=== PATIENT | female | born 1930 | race Caucasian/White ===

== ENCOUNTER 2017-01-02 16:02 | Inpatient (IN) | payer OTHER ==
[~2017-01-02] VITALS: Ht 152.4 cm; Wt 57.0 kg
[~2017-01-02 16:02] MED LIST: ALPRAZOLAM0.25 M2 PO; AMBIEN CR12.5 MG PO; AMLODIPINE BESYL5 MG PO; ARICEPT5 MG PO; ATARAX,VISTARIL25 MG PO; BISACODYL5 MG PO; BUSPAR15 MG PO; CALCITRIOL0.25 MCG PO; CELEXA20 MG PO; CITALOPRAM HBR20 MG PO; CLONAZEPAM0.5 MG PO; COLACE100 MG PO; CORGARD20 MG PO; CORGARD40 MG PO; ELOCON 0.1% OIN15 GM TP; ERGOCALCIF50000 UNIT PO; FAMOTIDINE40 MG PO; FERROUS SULFAT325 M2 PO; KEFLEX500 MG PO; LASIX20 MG PO; LEXAPRO10 MG PO; LEXAPRO20 MG PO; LIDOCAINE700 MG TD; LIPITOR20 MG PO; LORAZEPAM0.5 MG PO; LOVENOX30 MG/0.3 SC; MILK OF MAGNESI10 ML PO; MOBIC7.5 MG PO; MUPIROCIN22 GM TP; NABI650T PO; NADOLOL40 MG PO; NEURONTIN100 MG PO; NORCO 5/3251 TABLET PO; PANTOPRAZOLE SO40 MG PO; PERCOCET 5/31 TABLET PO; PROTONIX20 MG PO; SEROQUEL12.5 MG PO; SIMVASTATIN20 MG PO; SODIUM BICARBO325 MG PO; THERAGRAN1 TABLET PO; TRAZODONE HCL50 MG PO; TUMS500 MG PO; TYLENOL REGULA325 MG PO; VITAMIN D2000 UNIT PO; VITAMIN D32000 UNI1 PO; VOLTAREN 1% GE100 GM TP; ZOFRAN ODT4 MG PO
[2017-01-02 17:12] LABS: HEMATOCRIT 38.8 % (36.0-46.0); MCH 29.4 PG (29.0-34.0); MCHC 31.7 G/DL (30.0-36.0); MCV 92.6 FL (83-99); MEAN PLAT.VOLUME 9.3 uM^3 (9.5-12.4); PLATELET COUNT 155 K/uL (156-360); RBC DIS.WIDTH-CV 13.8 % (11.8-14.6); RBC DIS.WIDTH-SD 45.3 % (39-53); RED BLOOD COUNT 4.19 M/uL (3.80-5.20); WHITE BLOOD COUNT 6.2 K/uL (4.1-10.2)
[2017-01-02 17:25] LABS: CHLORIDE 108 mEq/L (99-109); POTASSIUM 5.4 mEq/L (3.7-5.4); SODIUM 140 mEq/L (136-147)
[2017-01-02 17:26] LABS: GLUCOSE 106 mg/dL (70-99)
[2017-01-02 17:28] LABS: ANION GAP 10 MEQ/L (2-14)
[2017-01-02 17:30] LABS: GFR ESTIMATE (CALCULATED) 16 mL/min/
[2017-01-02 17:31] LABS: UREA NITROGEN (BUN) 41 mg/dL (9-23)
[2017-01-02 17:36] LABS: TROP-I INTERPRETATION NEGATIVE; TROPONIN-I 0.03 ng/mL (0.0-0.30)
[2017-01-02] MEDS ORDERED: CORGARD40 MG PO (18:56)
[2017-01-02] MEDS ORDERED: PEPCID40 MG PO (18:58)
[2017-01-02] MEDS ORDERED: NEURONTIN300 MG PO (18:58)
[2017-01-02 21:03] LABS: BICARBONATE 22.7 mEq/L (22-26); METHEMOGLOBIN 1.3 % (0-1.5); PCO2 53 mm Hg (35-45); PO2 75 mm Hg (80-100)
[2017-01-02 21:04] LABS: COMMENTS - BLOOD GASES C+A+; DEVICE NC; O2 FLOW 2 L/MIN; SITE LB; TOTAL RESP RATE 22 resp/min
[2017-01-02 21:05] LABS: pH 7.24 (7.35-7.45)
[2017-01-02] MEDS ORDERED: NEURONTIN100 MG PO (21:29)
[2017-01-03 09:02] LABS: CHLORIDE 111 mEq/L (99-109); POTASSIUM 5.1 mEq/L (3.7-5.4); SODIUM 142 mEq/L (136-147)
[2017-01-03 09:03] LABS: GLUCOSE 91 mg/dL (70-99)
[2017-01-03 09:05] LABS: ANION GAP 14 MEQ/L (2-14)
[2017-01-03 09:07] LABS: GFR ESTIMATE (CALCULATED) 17 mL/min/
[2017-01-03 09:08] LABS: UREA NITROGEN (BUN) 40 mg/dL (9-23)
[2017-01-03 13:45] VITALS: BP 133/59
[2017-01-03 13:52] VITALS: BP 133/59
[2017-01-03 16:21] VITALS: BP 120/71
[2017-01-03 19:58] VITALS: BP 137/64
[2017-01-04 06:00] LABS: EOSINOPHIL (%) 4.3 % (0-5); EOSINOPHIL COUNT 0.2 K/uL (0-0.3); HEMATOCRIT 33.5 % (36.0-46.0); IMMATURE GRANULOCYTE (%) 0.2 % (0.0-0.7); LYMPHOCYTE COUNT 1.7 K/uL (1.0-2.8); MCH 31.3 PG (29.0-34.0); MCHC 32.8 G/DL (30.0-36.0); MCV 95.4 FL (83-99); MEAN PLAT.VOLUME 9.3 uM^3 (9.5-12.4); MONOCYTE (%) 11.6 % (3-12); MONOCYTE COUNT 0.5 K/uL (0-0.8); NEUTROPHIL (%) 47.2 % (45-76); NEUTROPHIL COUNT 2.2 K/uL (1.8-6.4); PLATELET COUNT 145 K/uL (156-360); RBC DIS.WIDTH-CV 13.9 % (11.8-14.6); RBC DIS.WIDTH-SD 46.4 % (39-53); RED BLOOD COUNT 3.51 M/uL (3.80-5.20); WHITE BLOOD COUNT 4.7 K/uL (4.1-10.2)
[2017-01-04 06:26] LABS: ANION GAP 8 MEQ/L (2-14); CHLORIDE 109 MEQ/L (99-109); GFR ESTIMATE (CALCULATED) 16 mL/min/; GLUCOSE 95 mg/dL (70-99); SAMPLE HEMOLYSIS CHECK 0; SAMPLE ICTERIC CHECK 0; SAMPLE LIPEMIA CHECK 0; SODIUM 139 MEQ/L (136-147); UREA NITROGEN (BUN) 39 mg/dL (9-23)
[2017-01-04 07:47] VITALS: BP 150/69
[2017-01-04 15:36] VITALS: BP 149/72
[2017-01-04 19:40] VITALS: BP 117/61
[2017-01-04 23:15] VITALS: BP 159/68
[2017-01-05 03:44] VITALS: BP 154/72
[2017-01-05 07:27] VITALS: BP 140/72
[2017-01-05 11:26] VITALS: BP 173/72
[2017-01-05 13:35] LABS: BASE EXCESS -6.2 mEq/L (-3 to +3); BICARBONATE 21.4 mEq/L (22-26); CARBOXY HGB 1.7 % (0-5); METHEMOGLOBIN 1.5 % (0-1.5); PCO2 51 mm Hg (35-45); PO2 86 mm Hg (80-100)
[2017-01-05 13:37] LABS: SITE RR; pH 7.23 (7.35-7.45)
[2017-01-05 13:38] LABS: COMMENTS - BLOOD GASES A+C+; DEVICE NC; O2 FLOW 2 L/MIN; TOTAL RESP RATE 10 resp/min
[2017-01-05 15:28] VITALS: BP 174/76
[2017-01-06 01:49] VITALS: BP 144/61
[2017-01-06 06:28] LABS: ANION GAP 9 MEQ/L (2-14); CHLORIDE 112 MEQ/L (99-109); GFR ESTIMATE (CALCULATED) 15 mL/min/; GLUCOSE 90 mg/dL (70-99); POTASSIUM 4.6 MEQ/L (3.7-5.4); SAMPLE HEMOLYSIS CHECK 0; SAMPLE ICTERIC CHECK 0; SAMPLE LIPEMIA CHECK 0; SODIUM 145 MEQ/L (136-147); UREA NITROGEN (BUN) 39 mg/dL (9-23)
[2017-01-06 08:01] VITALS: BP 148/68
[2017-01-06 11:57] VITALS: BP 118/59
[2017-01-06 16:19] VITALS: BP 144/63
[2017-01-06 20:29] VITALS: BP 166/70
[2017-01-07 00:18] VITALS: BP 152/69
[2017-01-07 04:50] VITALS: BP 153/67
[2017-01-07 07:33] LABS: ANION GAP 7 MEQ/L (2-14); CHLORIDE 112 MEQ/L (99-109); GFR ESTIMATE (CALCULATED) 16 mL/min/; GLUCOSE 88 mg/dL (70-99); POTASSIUM 4.7 MEQ/L (3.7-5.4); SAMPLE HEMOLYSIS CHECK 0; SAMPLE ICTERIC CHECK 0; SAMPLE LIPEMIA CHECK 0; SODIUM 144 MEQ/L (136-147); UREA NITROGEN (BUN) 43 mg/dL (9-23)
[2017-01-07 07:41] VITALS: BP 145/75
[2017-01-07 12:03] VITALS: BP 164/68
[2017-01-07 15:54] VITALS: BP 142/67
[2017-01-07 19:30] VITALS: BP 164/69
[2017-01-08 00:12] VITALS: BP 147/69
[2017-01-08 04:10] VITALS: BP 165/73
[2017-01-08 07:00] LABS: ANION GAP 11 MEQ/L (2-14); CHLORIDE 111 MEQ/L (99-109); GFR ESTIMATE (CALCULATED) 16 mL/min/; GLUCOSE 96 mg/dL (70-99); POTASSIUM 4.7 MEQ/L (3.7-5.4); SAMPLE HEMOLYSIS CHECK 0; SAMPLE ICTERIC CHECK 0; SAMPLE LIPEMIA CHECK 0; SODIUM 143 MEQ/L (136-147); UREA NITROGEN (BUN) 41 mg/dL (9-23)
[2017-01-08 08:28] VITALS: BP 125/59
[2017-01-08 12:55] VITALS: BP 123/58
[2017-01-08 20:20] VITALS: BP 158/69
[2017-01-08 23:45] VITALS: BP 106/71
[2017-01-09 08:00] VITALS: BP 132/63
[2017-01-09 12:00] VITALS: BP 106/51
[2017-01-09 16:03] VITALS: BP 134/63
[2017-01-09] MEDS ORDERED: DUONEB 2.5-0.5 M3 ML AEROSOL (17:51)
[2017-01-09] MEDS ORDERED: LASIX20 MG PO (17:53)
[2017-01-09] MEDS ORDERED: CALCITRIOL0.25 MCG PO (17:54)
[2017-01-09] MEDS ORDERED: AMLODIPINE BESYL5 MG PO (17:55)
[2017-01-09] MEDS ORDERED: OYSTER SHELL 51 EACH PO (17:56)
[2017-01-09 20:15] VITALS: BP 139/63
[2017-01-09 23:40] VITALS: BP 136/72
[2017-01-10 04:32] VITALS: BP 124/62
[2017-01-10 06:41] LABS: ANION GAP 11 MEQ/L (2-14); CHLORIDE 110 MEQ/L (99-109); GFR ESTIMATE (CALCULATED) 14 mL/min/; GLUCOSE 96 mg/dL (70-99); SAMPLE HEMOLYSIS CHECK 0; SAMPLE ICTERIC CHECK 0; SAMPLE LIPEMIA CHECK 0; SODIUM 140 MEQ/L (136-147); UREA NITROGEN (BUN) 49 mg/dL (9-23)
[2017-01-10 08:06] VITALS: BP 153/70
[2017-01-10 09:48] LABS: EOSINOPHIL COUNT 0.3 K/uL (0-0.3); IMMATURE GRANULOCYTE (%) 0.2 % (0.0-0.7); LYMPHOCYTE COUNT 1.7 K/uL (1.0-2.8); MCH 33.9 PG (29.0-34.0); MCHC 35.2 G/DL (30.0-36.0); MCV 96.5 FL (83-99); MEAN PLAT.VOLUME 9.8 uM^3 (9.5-12.4); MONOCYTE (%) 7.8 % (3-12); MONOCYTE COUNT 0.5 K/uL (0-0.8); NEUTROPHIL (%) 60.6 % (45-76); NEUTROPHIL COUNT 3.9 K/uL (1.8-6.4); PLATELET COUNT 180 K/uL (156-360); RBC DIS.WIDTH-CV 15.9 % (11.8-14.6); RED BLOOD COUNT 3.42 M/uL (3.80-5.20); WHITE BLOOD COUNT 6.4 K/uL (4.1-10.2)
[2017-01-10 12:19] VITALS: BP 138/65
== END 2017-01-10 17:40 | disposition home health service (06) | DRG 193 ==
LOC: EME 16:02 → EDOF 20:02 → 4SOUTH 20:02
PROVIDERS: Emergency Medicine; Family Medicine; Family Medicine Sports Medicine; Internal Medicine
DX: J18.9 Pneumonia, unspecified organism (principal); N18.4 Chronic kidney disease, stage 4 (severe); G93.41 Metabolic encephalopathy; E87.2 Acidosis; I12.9 Hypertensive chronic kidney disease with stage 1 through stage 4 chronic kidney disease, or unspecified chronic kidney disease; E78.5 Hyperlipidemia, unspecified; R41.82 Altered mental status, unspecified; K58.9 Irritable bowel syndrome, unspecified; D63.1 Anemia in chronic kidney disease; M19.90 Unspecified osteoarthritis, unspecified site; F41.9 Anxiety disorder, unspecified; F03.90 Unspecified dementia, unspecified severity, without behavioral disturbance, psychotic disturbance, mood disturbance, and anxiety; D50.9 Iron deficiency anemia, unspecified; M88.9 Osteitis deformans of unspecified bone; D35.1 Benign neoplasm of parathyroid gland; R53.83 Other fatigue; E83.51 Hypocalcemia; Z88.8 Allergy status to other drugs, medicaments and biological substances
CPT/HCPCS: 36600; 71010; 71020; 80048; 80069; 82306; 82803; 84484; 85025; 85025 91; 85027; 94760; 94799; 97530 GO; 97530 GP; 99202; 99281; 99285; J0456; J0696; J1644; J7050

== ENCOUNTER 2017-01-17 16:40 | Emergency (ER) | payer OTHER ==
[~2017-01-17] VITALS: Ht 152.4 cm; Wt 64.0 kg
[~2017-01-17 16:40] MED LIST changes: +DUONEB 2.5-0.5 M3 ML AEROSOL; +NEURONTIN300 MG PO; +OYSTER SHELL 51 EACH PO; +PEPCID40 MG PO
[2017-01-17 17:23] LABS: ADD MIUA? YES; BILIRUBIN NEGATIVE; BLOOD NEGATIVE; COLOR YELLOW ((YELLOW)); GLUCOSE (STRIP) NEGATIVE; KETONES NEGATIVE; LEUKOCYTES NEGATIVE; NITRITE NEGATIVE; PROTEIN (STRIP) NEGATIVE; UROBILINOGEN 0.2 MG/DL (0.2-1.0)
[2017-01-17 17:30] LABS: BACTERIA NONE SEEN /HPF; EPITHELIAL CELLS NONE SEEN /HPF; MUCUS NONE SEEN /LPF; RED BLOOD CELLS NONE SEEN /HPF (0-5); WHITE BLOOD CELLS 0-5 /HPF (0-5)
[2017-01-17 17:58] LABS: EOSINOPHIL (%) 6.8 % (0-5); EOSINOPHIL COUNT 0.5 K/uL (0-0.3); HEMATOCRIT 32.4 % (36.0-46.0); IMMATURE GRANULOCYTE (%) 0.3 % (0.0-0.7); IMMATURE GRANULOCYTE COUNT 0.2 K/uL; LYMPHOCYTE COUNT 1.4 K/uL (1.0-2.8); MCH 31.6 PG (29.0-34.0); MCV 95.6 FL (83-99); MEAN PLAT.VOLUME 9.7 uM^3 (9.5-12.4); MONOCYTE (%) 8.5 % (3-12); MONOCYTE COUNT 0.6 K/uL (0-0.8); NEUTROPHIL (%) 63.6 % (45-76); NEUTROPHIL COUNT 4.4 K/uL (1.8-6.4); PLATELET COUNT 219 K/uL (156-360); RBC DIS.WIDTH-CV 13.8 % (11.8-14.6); RED BLOOD COUNT 3.39 M/uL (3.80-5.20); WHITE BLOOD COUNT 6.9 K/uL (4.1-10.2)
[2017-01-17 18:07] LABS: CHLORIDE 110 mEq/L (99-109); POTASSIUM 5.8 mEq/L (3.7-5.4); SODIUM 140 mEq/L (136-147)
[2017-01-17 18:10] LABS: GLUCOSE 100 mg/dL (70-99)
[2017-01-17 18:11] LABS: ANION GAP 11 MEQ/L (2-14)
[2017-01-17 18:12] LABS: INTER. NORMALIZED RATIO 1.1; PROTHROMBIN TIME 10.8 (9.2-11.2); PTT 26.1 (25-32); TOTAL BILIRUBIN 0.3 mg/dL (0.0-1.0)
[2017-01-17 18:13] LABS: ALKALINE PHOSPHATASE 86 IU/L (3-129); GFR ESTIMATE (CALCULATED) 10 mL/min/
[2017-01-17 18:15] LABS: UREA NITROGEN (BUN) 62 mg/dL (9-23)
[2017-01-17 18:20] LABS: TROP-I INTERPRETATION NEGATIVE; TROPONIN-I 0.02 ng/mL (0.0-0.30)
[2017-01-17 19:13] LABS: BASE EXCESS -5.8 mEq/L (-3 to +3); BICARBONATE 21.8 mEq/L (22-26); CARBOXY HGB 1.8 % (0-5); COMMENTS - BLOOD GASES C+A+; METHEMOGLOBIN 1.1 % (0-1.5); O2 FLOW 2 L/MIN; PCO2 52 mm Hg (35-45); PO2 77 mm Hg (80-100); SITE LR
[2017-01-17 19:14] LABS: DEVICE NC; pH 7.23 (7.35-7.45)
[2017-01-17 21:35] VITALS: BP 134/73
== END 2017-01-17 21:37 | disposition home or self-care (01) ==
LOC: EME 16:40
PROVIDERS: Emergency Medicine
DX: F03.90 Unspecified dementia, unspecified severity, without behavioral disturbance, psychotic disturbance, mood disturbance, and anxiety (principal); R53.1 Weakness; R06.00 Dyspnea, unspecified; I12.9 Hypertensive chronic kidney disease with stage 1 through stage 4 chronic kidney disease, or unspecified chronic kidney disease; N18.9 Chronic kidney disease, unspecified; E78.5 Hyperlipidemia, unspecified
CPT/HCPCS: 36600; 70450; 71010; 80053; 81003; 82803; 84484; 85025; 85610; 85730; 93005; 99281; 99285; J7030